=== PATIENT | male | born 1965 ===

== ENCOUNTER → 2017-01-06 | Outpatient (CLI) | payer OTHER ==
--- NOTE | 2017-01-06 10:37 | DIAGNOSTIC IMAGING REPORT ---
RIGHT FOOT 3 VIEWS CLINICAL HISTORY: Right foot pain. FINDINGS: 3 views of the right foot are obtained. No prior studies are available for comparison at the time of dictation. The skeletal structures are well mineralized. No fracture is seen. The joint spaces of the foot are well-maintained. The overlying soft tissues are within normal limits. IMPRESSION: No acute bony abnormality is seen in the right foot. Electronically signed by: Diallo Shelley M.D. 01/06/2017 10:36 AM Dictated Date/Time: 01/06/2017 10:34 AM
== END | disposition home or self-care (01) ==
LOC: C.RAD 10:07
PROVIDERS: ATTEND Internal Medicine
DX: M79.671 Pain in right foot (principal); D51.8 Other vitamin B12 deficiency anemias